=== PATIENT | male | born 1985 | race African-American/Black ===

== ENCOUNTER 2017-06-23 19:25 | Emergency (ER) | payer OTHER ==
[~2017-06-23] VITALS: Ht 177.8 cm; Wt 84.0 kg
[2017-06-23] MEDS ORDERED: ZOLP10TA7 PO (19:32)
[2017-06-23] MEDS ORDERED: SERT50TA12 PO (19:32)
[2017-06-23 20:34] VITALS: BP 124/80
== END 2017-06-23 20:40 | disposition home or self-care (01) ==
LOC: EMS 19:27
DX: R07.89 Other chest pain (principal); I10 Essential (primary) hypertension; F17.210 Nicotine dependence, cigarettes, uncomplicated
CPT/HCPCS: 99283; 99406

== ENCOUNTER 2017-06-26 05:15 | Emergency (ER) | payer OTHER ==
[~2017-06-26] VITALS: Ht 177.8 cm; Wt 84.1 kg
[~2017-06-26 05:15] MED LIST: SERT50TA12 PO; ZOLP10TA7 PO
[2017-06-26] MEDS ORDERED: BENZ1TAB10 PO (05:34)
[2017-06-26 05:56] LABS: BASOPHILS # (AUTO) 0.02 K/uL (0.00-0.20); BASOPHILS % (AUTO) 0.2 % (0.0-2.0); EOSINOPHILS # (AUTO) 0.09 K/uL (0.00-0.70); HEMOGLOBIN 14.4 g/dL (13.5-17.5); LYMPHOCYTES # (AUTO) 1.4 K/uL (1.0-4.8); LYMPHOCYTES % (AUTO) 21.2 % (22.0-44.0); MEAN CORPUSCULAR HEMOGLOBIN 31.6 pg (26.0-34.0); MEAN CORPUSCULAR HGB CONC 34.2 G/dL (31.0-37.0); MEAN CORPUSCULAR VOLUME 92 fL (80-100); MONOCYTES # (AUTO) 0.4 K/uL (0.1-1.0); NEUTROPHILS # (AUTO) 4.8 K/uL (1.8-7.7); NEUTROPHILS % (AUTO) 71.2 % (40.0-70.0); PLATELET COUNT (AUTO) 202 K/uL (150-450); RED BLOOD CELL COUNT(AUTO) 4.55 MIL/uL (4.50-5.90); RED CELL DISTRIBUTION WIDTH 13.6 % (11.5-14.5); WHITE BLOOD COUNT (AUTO) 6.7 K/uL (4.5-11.0)
[2017-06-26 06:02] LABS: ANION GAP 11 mmol/L (8-16); CARBON DIOXIDE 27 mmol/L (22-29); CHLORIDE 105 mmol/L (98-107); CREATININE 1.04 mg/dL (0.60-1.30); POTASSIUM 4.1 mmol/L (3.5-5.1); SODIUM SERUM 143 mmol/L (136-145); UREA NITROGEN, BLOOD 16 mg/dL (7-18)
[2017-06-26 06:03] LABS: CALCIUM, TOTAL 8.8 mg/dL (8.8-10.5); GLOMERULAR FILTR. RATE CALC > 60 mL/min (>60)
[2017-06-26 06:08] LABS: ALANINE AMINOTRANSFERASE 34 U/L (12-78); ALBUMIN 3.9 g/dL (3.4-5.0); ASPARTATE AMINOTRANSFERASE 32 U/L (15-37); BILIRUBIN,TOTAL 0.4 mg/dL (0.1-1.0); TOTAL PROTEIN, SERUM 7.2 g/dL (6.4-8.2)
[2017-06-26 06:35] VITALS: BP 118/54
== END 2017-06-26 06:40 | disposition home or self-care (01) ==
LOC: EMS 05:17
DX: F12.10 Cannabis abuse, uncomplicated (principal); F17.210 Nicotine dependence, cigarettes, uncomplicated
CPT/HCPCS: 36415; 80053; 80307; 85025; 99284; G0480

== ENCOUNTER 2017-06-26 18:35 | Emergency (ER) | payer OTHER ==
[~2017-06-26] VITALS: Ht 177.8 cm; Wt 84.5 kg
[~2017-06-26 18:35] MED LIST changes: +BENZ1TAB10 PO
[2017-06-26 20:34] VITALS: BP 136/79
== END 2017-06-26 21:04 | disposition home or self-care (01) ==
LOC: EMS 18:36
DX: F19.10 Other psychoactive substance abuse, uncomplicated (principal); F17.210 Nicotine dependence, cigarettes, uncomplicated; F15.10 Other stimulant abuse, uncomplicated
CPT/HCPCS: 99283